=== PATIENT | male | born 1990 | race African-American/Black ===

== ENCOUNTER 2021-01-24 13:55 | Emergency (ER) | payer SELFPAY ==
[~2021-01-24] VITALS: Ht 198.1 cm; Wt 113.4 kg
== END 2021-01-24 15:08 | disposition home or self-care (01) ==
LOC: ER 13:55
DX: T25.221A Burn of second degree of right foot, initial encounter (principal); T25.222A Burn of second degree of left foot, initial encounter; Z88.6 Allergy status to analgesic agent; Z88.5 Allergy status to narcotic agent; X10.2XXA Contact with fats and cooking oils, initial encounter
CPT/HCPCS: 16020; 90471; 90714; 99283-25